=== PATIENT | female | born 1980 | race Caucasian/White ===

== ENCOUNTER 2023-01-20 23:25 | Emergency (ER) | payer SELFPAY ==
[2023-01-20 23:45] VITALS: BP 190/98; PULSE 96; RESP 20; TEMP 36.6; O2SAT 100; BMI 19.0
[2023-01-20 23:58] LABS: Basophils # 0.1 K/mm3 (0-0.2); Basophils % 0.8 % (0.1-2.0); Eosinophils # 0.1 K/mm3 (0.0-0.4); Eosinophils % 0.9 % (0.1-12.0); Hematocrit 41.4 % (37.0-47.0); Hemoglobin 13.7 g/dL (12.2-16.2); Lymphocytes # 4.5 K/mm3 (0.7-4.5); Mean Corpuscular HGB Conc 33.1 g/dL (31.8-35.4); Mean Corpuscular Hemoglobin 29.9 pg (27.0-31.2); Mean Corpuscular Volume 90.2 fl (81-99); Mean Platelet Volume 7.7 fl (7.4-10.4); Monocytes # 0.6 K/mm3 (0.1-1.0); Monocytes % 5.9 % (1.7-9.3); Neutrophils # 5.2 K/mm3 (1.8-7.8); Neutrophils % 49.5 % (37.0-80.0); Platelet Count 308 K/mm3 (142-424); Red Blood Count 4.59 M/mm3 (4.20-5.40); Red Cell Distribution Width 12.7 % (11.5-17.5); White Blood Count 10.5 K/mm3 (4.8-10.8)
[2023-01-21] VITALS: BP 190/115; PULSE 95; O2SAT 99
--- NOTE | 2023-01-21 | CT_ITS ---
PROCEDURE INFORMATION: Exam: CT Abdomen And Pelvis With Contrast Exam date and time: 01/21/2023 12:12 AM Age: 43 years old Clinical indication: Abdominal pain; Prior surgery; Surgery type: Tubal; Additional info: Pelvic pain TECHNIQUE: Imaging protocol: Computed tomography of the abdomen and pelvis with contrast. Radiation optimization: All CT scans at this facility use at least one of these dose optimization techniques: automated exposure control; mA and/or kV adjustment per patient size (includes targeted exams where dose is matched to clinical indication); or iterative reconstruction. Contrast material: ISOVUE; Contrast volume: 75 ml; Contrast route: IV; REPORTING DATA: Count of CT and Cardiac NM exams in prior 12 months: This patient has received 0 known CTs and 0 known cardiac nuclear medicine studies in the 12 months prior to the current study. COMPARISON: No relevant prior studies available. FINDINGS: Liver: Normal. No mass. Gallbladder and bile ducts: Normal. No calcified stones. No ductal dilation. Pancreas: Normal. No ductal dilation. Spleen: Normal. No splenomegaly. Adrenal glands: Normal. No mass. Kidneys and ureters: Normal. No hydronephrosis. Stomach and bowel: Scattered colonic diverticula without pericolonic fat stranding. Appendix: No evidence of appendicitis. Intraperitoneal space: Unremarkable. No free air. No significant fluid collection. Vasculature: Unremarkable. No abdominal aortic aneurysm. Lymph nodes: Shotty mesenteric/retroperitoneal lymph nodes without lymphadenopathy. Urinary bladder: Unremarkable as visualized. Reproductive: Unremarkable as visualized. Bones/joints: Unremarkable. No acute fracture. Soft tissues: Unremarkable. IMPRESSION: Reactive mesenteric/retroperitoneal lymph nodes. Colonic diverticulosis. Otherwise unremarkable study.
--- NOTE | 2023-01-21 | HMH.EDABDPAI ---
Discharge Plan Disposition Patient Disposition: Home, Self-Care Condition: Good Prescriptions Prescriptions: New dicyclomine 20 mg tablet 20 mg PO TID PRN (Reason: abdominal pain) Qty: 20 0RF metronidazole 500 mg tablet 500 mg PO TID Qty: 30 0RF ciprofloxacin HCl [Cipro] 500 mg tablet 500 mg PO BID Qty: 20 0RF No Action escitalopram oxalate 10 mg tablet See Rx Instructions .ROUTE .COMPLEX Qty: 30 0RF Dose Instruction: Take 1 tablet by mouth once daily Rx Instructions: Take 1 tablet by mouth once daily metoprolol succinate 25 mg tablet extended release 24 hr See Rx Instructions .ROUTE .COMPLEX Qty: 30 0RF Dose Instruction: Take 1 tablet by mouth once daily Rx Instructions: Take 1 tablet by mouth once daily Referrals Follow up/Referrals: Johnnie Hunter APRN [Primary Care Provider] - See instructions Diana Bray APRN [Staff Physician] - See instructions Clinical Impressions Clinical Impression: Mesenteric adenitis, Pyuria, Hypertension Stand Alone Forms Stand Alone Forms: Work/School Release Instructions Patient Instructions: DI for Acute Abdominal Pain Discharge ED Provider: Larissa Cadena Abdominal Pain HPI General Chief Complaint: Abdominal Pain Stated Complaint: Stomach pain,diarrhea Time Seen by Provider: 01/20/23 23:45 Mode of Arrival: Ambulatory Source of Information: Patient Limitations: No Limitations History of Present Illness HPI narrative: Patient is a 43 female with complaint suprapubic pain. Patient is complaining severe suprapubic pain and abdominal pain. Patient stated that started last night but she worked through all day at work and then said the pain got worse so she brought her some pain. Burning all night sensation in the suprapubic area. She has no urgency frequency or burning on urination. She is urinating fine. She is drinking fine. Patient has nausea but no vomiting. Pain 6 out of 10 burning cramping type pain to lower abdomen. She did not have any diarrhea all day but now she has had couple episodes of diarrhea no blood in the diarrhea. MD complaint: abdominal pain Onset (ago): hour(s) Consistency: intermittent Location: suprapubic Severity: moderate Severity scale (1-10): 8 Quality: cramping and stabbing Radiation: RLQ Migration to: RLQ Relieving factors: nothing Exacerbating factors: nothing Associated symptoms: nausea and diarrhea Related Data Previous Rx's Medication Instructions Recorded escitalopram oxalate 10 mg tablet See Rx Instructions .Route 09/28/22 .COMPLEX #30 tabs metoprolol succinate 25 mg See Rx Instructions .Route 09/28/22 tablet,extended release 24 hr .COMPLEX #30 tabs ciprofloxacin HCl 500 mg tablet 500 mg PO BID #20 tabs 01/21/23 (Cipro) dicyclomine 20 mg tablet 20 mg PO TID PRN abdominal pain 01/21/23 #20 tabs metronidazole 500 mg tablet 500 mg PO TID #30 tabs 01/21/23 Allergies Allergy/AdvReac Type Severity Reaction Status Date / Time No Known Allergies Allergy Verified 09/10/22 10:56 [facility] Disclaimer: The information contained in this section may have been updated after the patient was seen, as this information can be updated by other users. 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 Smoking Status: Current some day smoker alcohol intake: never current occupational status: employed Travel in the last 8 weeks: None ROS Obtained: Yes All systems reviewed & no additional complaints except as documented Gastrointestinal Gastrointestingal: Reports abdominal pain, cramping, diarrhea and nausea Physical Exam General General appearance: alert and in distress Head Head exam: atraumatic, normocephalic and normal inspection Eye Eye exam: Present normal appearance, PERRL and EOMI; Absent scleral icterus or conjunctival redness ENT ENT exam: Present normal exam, normal oropharynx and mucous membranes moist Neck Neck exam: Pre
[2023-01-21 00:15] LABS: Alanine Aminotransferase 26 U/L (12-78); Albumin Level 4.9 g/dl (3.5-5.0); Albumin/Globulin Ratio 1.4 (1.1-1.8); Alkaline Phosphatase 72 U/L (38-126); Anion Gap 7.6 mEq/L (5-15); Aspartate Amino Transferase 29 U/L (14-36); Bilirubin,Total 0.8 mg/dl (0.2-1.3); Blood Urea Nitrogen 13 mg/dl (7-17); Calcium 9.3 mg/dl (8.4-10.2); Carbon Dioxide 29 mmol/L (22.0-30.0); Chloride 102 mmol/L (98-107); Estimated Glomerular Filt Rate 78 ml/min (>60); GFR (African American) 94 ML/MIN (>60); Globulin 3.6 g/dL (1.3-3.2); Glucose 100 mg/dl (74-100); Lipase 116 U/L (23-300); Potassium 3.6 mmoL/L (3.5-5.1); Sodium 135 mmol/L (136-145); Total Protein,Serum 8.5 g/dl (6.3-8.2)
[2023-01-21 00:21] LABS: Activated Partial Thrombo Time 25.7 seconds (22.8-30.6); Prothrombin Time 10.8 seconds (10.1-12.5)
[2023-01-21 00:30] VITALS: BP 190/108; PULSE 87; O2SAT 100
[2023-01-21 01:00] VITALS: BP 173/100; PULSE 94; O2SAT 100
[2023-01-21 01:12] LABS: Microscopic, Urine URINE MICROSCOPIC (MICROSCOPIC)
[2023-01-21 01:13] LABS: Appearance,Urine CLEAR (Clear); Bilirubin,Urine Negative (Negative); Blood, Urine Negative (Negative); Color,Urine YELLOW (Yellow); Glucose,Urine (UA) Negative (Negative); Ketones,Urine Negative (Negative); Leukocyte Esterase,Urine 1+ (Negative); Nitrate,Urine Negative (Negative); Protein,Urine Negative (Negative); Urobilinogen,Urine 0.2 EU/dl (0.2)
[2023-01-21 01:39] LABS: Bacteria,Urine 2+ /lpf
[2023-01-21 01:58] VITALS: BP 170/98; PULSE 74; RESP 16; TEMP 36.9; O2SAT 99
== END 2023-01-21 01:59 | disposition home or self-care (01) ==
PROVIDERS: Emergency Provider Emergency Medicine; PCP Nurse Practitioner Family
DX: I88.0 Nonspecific mesenteric lymphadenitis (principal); R82.81 Pyuria; R10.31 Right lower quadrant pain; F17.200 Nicotine dependence, unspecified, uncomplicated
CPT/HCPCS: 74177; 80053; 81001; 83690; 85025; 85610; 85730; 87086; 87088; 87186; 96360; 96374; 96375; 99284; 99285; J2405; Q9967

== ENCOUNTER 2024-09-11 23:35 | Emergency (ER) | payer SELFPAY ==
[2024-09-11 23:36] VITALS: BP 191/126; PULSE 114; RESP 20; TEMP 36.9; O2SAT 100; BMI 21.2
--- NOTE | 2024-09-11 23:37 | XR_ITS ---
PROCEDURE INFORMATION: Exam: XR Chest Exam date and time: 09/11/2024 11:33 PM Age: 44 years old Clinical indication: Pain; Chest pressure; Additional info: Cp R side TECHNIQUE: Imaging protocol: Radiologic exam of the chest. Views: 2 views. COMPARISON: CT ABDOMEN PELVIS W CON 01/21/2023 12:12 AM FINDINGS: Lungs: No consolidation. Pleural spaces: No pleural effusion. No pneumothorax. Heart/Mediastinum: No cardiomegaly. Bones/joints: Unremarkable. IMPRESSION: No acute findings.
--- NOTE | 2024-09-11 23:38 | HMH.EDCP ---
Discharge Plan Disposition Patient Disposition: Home, Self-Care Prescriptions Prescriptions: No Action escitalopram oxalate 10 mg tablet See Rx Instructions .ROUTE .COMPLEX Qty: 30 0RF Dose Instruction: Take 1 tablet by mouth once daily Rx Instructions: Take 1 tablet by mouth once daily metoprolol succinate 25 mg tablet extended release 24 hr See Rx Instructions .ROUTE .COMPLEX Qty: 30 0RF Dose Instruction: Take 1 tablet by mouth once daily Rx Instructions: Take 1 tablet by mouth once daily dicyclomine 20 mg tablet 20 mg PO TID PRN (Reason: abdominal pain) Qty: 20 0RF metronidazole 500 mg tablet 500 mg PO TID Qty: 30 0RF ciprofloxacin HCl [Cipro] 500 mg tablet 500 mg PO BID Qty: 20 0RF Referrals Follow up/Referrals: Provider,Referral, [Primary Care Provider] - See instructions Activity Restrictions/Add. Instructions Additional Instructions/Restrictions: You were evaluated in the ER and are appropriate for discharge at this time. Take the prescribed Hydroxyzine if needed for anxiety. This medication makes you feel sleepy, do not drive after taking it. Make an appointment with your primary care doctor to recheck your blood pressure and re-evaluate your symptoms. Return to the ER with any new, worsening, or otherwise concerning symptoms. Clinical Impressions Clinical Impression: Anxiety, Chest pain Stand Alone Forms Stand Alone Forms: Work/School Release Print Language Print Language: Cameroonian Discharge ED Provider: Aminta Ibarra General Chief Complaint: Chest Pain Stated Complaint: Chest Pain Time Seen by Provider: 09/11/24 23:37 History of Present Illness HPI narrative: 44-year-old female with a history of depression, anxiety presents to the ER with right sided chest pain. She reports her chest pain started today around 3 PM. 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 She states she has been under a lot of stress recently and has not been taking her depression and anxiety medications because she does not have active health insurance, and states this extra stress seems to initiate her pain. She reports it feels tight but not like pressure and is nonradiating. She states the pain has been persistent all day, it lessened slightly around 6 PM when she was at her daughter's music program and was relaxed, but then worsened again. She is not having any headache, dizziness, nausea, vomiting, difficulty breathing, numbness, tingling, weakness, dysuria, hematuria, or other associated symptoms. She has not taken any medications for her pain. She states she is not currently on any of her old prescribed medications because of her lack of health insurance. She believes her pain is from anxiety. Related Data Previous Rx's ?Medication ?Instructions ?Recorded escitalopram oxalate 10 mg tablet See Rx Instructions .Route 09/28/22 .COMPLEX #30 tabs metoprolol succinate 25 mg See Rx Instructions .Route 09/28/22 tablet,extended release 24 hr .COMPLEX #30 tabs ciprofloxacin HCl 500 mg tablet 500 mg PO BID #20 tabs 01/21/23 (Cipro) dicyclomine 20 mg tablet 20 mg PO TID PRN abdominal pain 01/21/23 #20 tabs metronidazole 500 mg tablet 500 mg PO TID #30 tabs 01/21/23 Allergies Allergy/AdvReac Type Severity Reaction Status Date / Time No Known Allergies Allergy Verified 09/10/22 10:56 [facility] Disclaimer: The information contained in this section may have been updated after the patient was seen, as this information can be updated by other users. 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 Smoking Status: Current every day smoker alcohol intake: never current occupational status: employed Travel in the last 8 weeks: None ROS Obtained: Yes Systems reviewed as appropriate & no additional complaints except as documented ROS per HPI Physical Exam General General appearance: alert and in no apparent distress Head Head exam: atraumatic and normocephalic Eye Eye exam: Present PERRL and EOMI (Strabismus right eye) ENT ENT exam: Present mucous membranes moist Neck Neck exam: Present normal inspection and full ROM Chest Chest inspection: Present symmetric chest wall rise; Absent tenderness Respiratory Respiratory exam: Present normal lung sounds bilaterally; Absent respiratory distress, wheezes or stridor Cardiovascular Cardiovascular exam: Present regular rate and normal rhythm Abdominal Exam Abdominal exam: Present soft; Absent distention or tenderness Extremities Exam Extremities exam: Present full ROM Neurological Exam Neurological exam: Present alert and oriented X3; Absent motor sensory deficit Psychiatric Psychiatric exam: Present normal affect and normal mood Skin Skin exam: Present warm and dry HEART Score HEART Score HEART Score assessment performed?: Yes History (anamnesis): Slightly suspicious ECG: Non-specific disturbance Age: 45-65 years Risk factors: 1-2 risk factors Troponin: </= normal limit HEART Score: 3 Critical Care Critical Care Time Critical Care Time: No Medical Decision Making Medical Records Medical records reviewed: Yes I reviewed the patient's medical records. MR Comment: Patient was seen in our ER in 2022 and prescribed dicyclomine, metronidazole, ciprofloxacin after being diagnosed with mesenteric adenitis, pyuria, hypertension when she presented with suprapubic pain. Otherwise limited records within our system. Rios Inquiry Pt receiving controlled substance: No Vital Signs Vital Signs: 09/11/24 23:36 09/11/24 23:48 09/11/24 23:58 Temperature 98.4 F Temperature Source Oral Pulse Rate 114 H 85 Pulse Rate [Right] 114 H Respiratory Rate 20 Blood Pressure 182/111 H Blood Pressure [Right Arm] 191/126 H Blood Pressure Mean 143 Blood Pressure Mean [Right Arm] 147 02 Sat by Pulse Oximetry 100 99 Oxygen Delivery Method Room Air 09/12/24 00:00 09/12/24 00:35 09/12/24 01:05 Temperature Temperature Source Pulse Rate 87 83 86 Pulse Rate [Right] Respiratory Rate 13 18 Blood Pressure 190/117 H 168/105 H 170/103 H Blood Pressure [Right Arm] Blood Pressure Mean 140 Blood Pressure Mean [Right Arm] 02 Sat by Pulse Oximetry 99 98 99 Oxygen Delivery Method 09/12/24 01:35 09/12/24 01:44 Temperature 98.4 F Temperature Source Pulse Rate 78 74 Pulse Rate [Right] Respiratory Rate 15 17 Blood Pressure 172/104 H 172/104 H Blood Pressure [Right Arm] Blood Pressure Mean Blood Pressure Mean [Right Arm] 02 Sat by Pulse Oximetry 99 Oxygen Delivery Method Room Air Lab Data Labs: Lab Results 09/11/24 23:35: WBC 12.2 H, RBC 4.67, Hgb 14.3, Hct 42.2, MCV 90.4, MCH 30.7, MCHC 34.0, RDW 13.2, Plt Count 286, MPV 7.5, Neut % (Auto) 59.2, Lymph % (Auto) 31.8, [place] % (Auto) 6.3, Eos % (Auto) 1.3, Baso % (Auto) 1.4, Neut # (Auto) 7.2, Lymph # (Auto) 3.9, [place] # (Auto) 0.8, Eos # (Auto) 0.2, Baso # (Auto) 0.2, PT 10.5, INR 0.93, D-Dimer 0.67 H, Sodium 140, Potassium 4.2, Chloride 102, Carbon Dioxide 31 H, Anion Gap 11.2, BUN 10, Creatinine 0.70, Estimated Creat Clear 92, Estimated GFR 90, Est GFR ( Amer) 109, Glucose 95, Calcium 10.0, Total Bilirubin 0.7, AST 33, ALT 30, Alkaline Phosphatase 64, Troponin I < 0.01, NT-Pro-B Natriuret Pep 50.2, Total Protein 8.7 H, Albumin 5.1 H, Globulin 3.6 H, Albumin/Globulin Ratio 1.4, Serum HCG, Qual Negative 09/11/24 23:35 09/11/24 23:35 Response Orders (Tests/Meds): ED MEDICATIONS Discontinued Medications Generic Name Dose Route Start Last Admin Trade Name Freq PRN Reason Stop Dose Admin Aspirin 324 mg 09/11/24 23:37 09/11/24 23:44 Aspirin 81mg Chewable Tablet PO 09/11/24 23:38 324 mg ONCE ONE Administration Hydroxyzine Pamoate 50 mg 09/11/24 23:37 09/11/24 23:45 Hydroxyzine Pamoate 25mg Capsule PO 09/11/24 23:38 50 mg ONCE ONE Administration ORDERS Category Date Time Status XR chest 2V Stat Exams 09/11/24 23:37 Completed Complete Blood Count Auto Diff Stat Lab 09/11/24 23:35 Completed Comprehensive Metabolic Panel Stat Lab 09/11/24 23:35 Completed D-Dimer Stat Lab 09/11/24 23:35 Completed HCG Qualitative, Serum Stat Lab 09/11/24 23:35 Completed HIV (1&2) Antibody Rapid Stat Lab 09/11/24 23:35 Received Hep C Ab with Reflex to RNA Stat Lab 09/11/24 23:35 Received NT Pro Brain Natriuretic Pep. Stat Lab 09/11/24 23:35 Completed Prothrombin Time INR Stat Lab 09/11/24 23:35 Completed Troponin I Q3H Lab 09/12/24 05:45 Ordered Troponin I Stat Lab 09/11/24 23:35 Completed MDM Narrative Medical Decision Narrative: In summary, this 44-year-old female with comorbidities as described in HPI presents to the emergency department today with right-sided chest pain without radiation that she believes is attributed to anxiety. On initial evaluation patient is hemodynamically stable, afebrile, she is hypertensive but also reports an extreme anxiety of needles as well as having anxiety due to her ongoing situation. Cardiopulmonary exam is benign, patient has no tenderness of the chest wall. She was tachycardic on arrival but on my exam her tachycardia had improved and her heart rate was in the 90s. She has a benign abdominal exam, GCS 15, no neurodeficits. Differential diagnosis includes but is not limited to ACS, PE, esophageal spasm, pneumothorax, electrolyte abnormality, dehydration, anxiety, panic attack. Based on these concerns, I ordered serum labs, chest x-ray, cardiac workup, treatment for anxiety. ECG personally interpreted demonstrates sinus tachycardia, rate 105, [place] is short at 117 but there is no delta wave, no finding of WPW, no Brugada, no HCM. Normal axis, normal QTc, no STEMI. Patient received aspirin, hydroxyzine initially for treatment of chest pain and anxiety Labs personally reviewed demonstrate D-dimer 0.67, per years criteria PE is ruled out and CTA PE is not indicated. Initial troponin undetectably low less than 0.01, significantly reassuring against cardiac pathology given patient's duration of symptoms and reassuring EKG. CMP nonactionable, CBC nonactionable though patient does have very mild leukocytosis which is nonspecific, hemoglobin and platelets are normal with normal PT/INR, test negative. I do not believe serial troponins are indicated given the duration of patient's symptoms. Chest x-ray personally interpreted does not demonstrate acute intrathoracic abnormality, see radiology read for final interpreted age. On reassessment, patient is asymptomatic and no longer has chest pain, her blood pressure is also improved without any intervention aside from the hydroxyzine which was administered earlier. She is appropriate for discharge at this time. She explained that her health insurance starts this week and she is going to get back on her previously prescribed medications. Did give her a prescription for hydroxyzine for management of anxiety temporarily. Explained that this medication can make her sleepy and that she should not drive or operate machinery after taking it. I gave her explicit instructions to follow-up with her primary care doctor immediately for reevaluation of hypertension as well as her other ongoing problems. Patient was given written and verbal instructions on symptomatic monitoring and management, follow-up instructions, and return precautions for the emergency department. She indicated understanding and the patient was discharged in stable condition
--- NOTE | 2024-09-11 23:40 | ECG_ITS ---
APPROVED REPORT Exam: Resting ECG HR:105 bpm ECG Measurements Heart Rate 105 AXES WA 117 P 59 QRSd 73 QRS 58 QT 310 T 70 QTc 371 Conclusion SINUS TACHYCARDIA WITH SHORT WA INTERVAL ABNORMAL RHYTHM ECG No STEMI Electronically signed by : FRED SILVER, 09/12/2024 07:03:58
[2024-09-11] MEDS: ASPIRIN 81MG CHEWABLE TABLET 324 MG PO (23:44)
[2024-09-11] MEDS: hydrOXYzine pamoate 25MG CAPSULE 50 MG PO (23:45)
[2024-09-11 23:48] VITALS: PULSE 114
[2024-09-11 23:58] VITALS: BP 182/111; PULSE 85; O2SAT 99
[2024-09-11 23:59] LABS: Basophils # 0.2 K/mm3 (0-0.2); Basophils % 1.4 % (0.1-2.0); Eosinophils # 0.2 K/mm3 (0.0-0.4); Eosinophils % 1.3 % (0.1-12.0); Hematocrit 42.2 % (37.0-47.0); Hemoglobin 14.3 g/dL (12.2-16.2); Lymphocytes # 3.9 K/mm3 (0.7-4.5); Lymphocytes % 31.8 % (10-50); Mean Corpuscular Hemoglobin 30.7 pg (27.0-31.2); Mean Corpuscular Volume 90.4 fl (81-99); Mean Platelet Volume 7.5 fl (7.4-10.4); Monocytes # 0.8 K/mm3 (0.1-1.0); Monocytes % 6.3 % (1.7-9.3); Neutrophils # 7.2 K/mm3 (1.8-7.8); Neutrophils % 59.2 % (37.0-80.0); Platelet Count 286 K/mm3 (142-424); Red Blood Count 4.67 M/mm3 (4.20-5.40); Red Cell Distribution Width 13.2 % (11.5-17.5); White Blood Count 12.2 K/mm3 (4.8-10.8)
[2024-09-12] VITALS: BP 190/117; PULSE 87; O2SAT 99
[2024-09-12] LABS: HCG Qualitative, Serum Negative (Negative)
[2024-09-12 00:01] LABS: Alanine Aminotransferase 30 U/L (12-78); Albumin Level 5.1 g/dl (3.5-5.0); Albumin/Globulin Ratio 1.4 (1.1-1.8); Alkaline Phosphatase 64 U/L (38-126); Anion Gap 11.2 mEq/L (5-15); Aspartate Amino Transferase 33 U/L (14-36); Bilirubin,Total 0.7 mg/dl (0.2-1.3); Blood Urea Nitrogen 10 mg/dl (7-17); Carbon Dioxide 31 mmol/L (22.0-30.0); Chloride 102 mmol/L (98-107); Creatinine Clearance Estimated 92 mL/min (50-200); Estimated Glomerular Filt Rate 90 ml/min (>60); GFR (African American) 109 ML/MIN (>60); Globulin 3.6 g/dL (1.3-3.2); Glucose 95 mg/dl (74-100); INR 0.93 (0.9-1.1); Potassium 4.2 mmoL/L (3.5-5.1); Prothrombin Time 10.5 seconds (10.1-12.5); Sodium 140 mmol/L (136-145); Total Protein,Serum 8.7 g/dl (6.3-8.2)
[2024-09-12 00:13] LABS: NT Pro Brain Natriuretic Pep. 50.2 pg/mL (0-125)
[2024-09-12 00:16] LABS: D-Dimer 0.67 ug/mL (0.0-0.5)
[2024-09-12 00:35] VITALS: BP 168/105; PULSE 83; RESP 13; O2SAT 98
[2024-09-12 01:05] VITALS: BP 170/103; PULSE 86; RESP 18; O2SAT 99
[2024-09-12 01:35] VITALS: BP 172/104; PULSE 78; RESP 15; O2SAT 99
[2024-09-12 01:44] VITALS: BP 172/104; PULSE 74; RESP 17; TEMP 36.9; O2SAT 96
[2024-09-12 03:14] LABS: Troponin I < 0.01 ng/ml (0.00-0.034)
[2024-09-12 12:15] LABS: HIV (1&2) Antibody Rapid NONREACTIVE (NONREACTIVE)
[2024-09-13 06:15] LABS: HCV Ab Non Reactive (Non Reactive)
== END 2024-09-12 01:44 | disposition home or self-care (01) ==
PROVIDERS: Emergency Provider Emergency Medicine
DX: R07.9 Chest pain, unspecified (principal); F41.9 Anxiety disorder, unspecified
CPT/HCPCS: 71046; 80053; 83880; 84484; 84703; 85025; 85378; 85610; 86803; 87389; 93005; 99284

== ENCOUNTER 2024-09-14 09:54 | Outpatient (CLI) | payer BC, SELFPAY ==
[2024-09-14 18:23] LABS: Chol/HDL Ratio 3.7 (1-3.5); Cholesterol 246 mg/dl (140-200); HDL Cholesterol 66 mg/dl (40-60); Triglycerides 88 mg/dl (30-150); VLDL Cholesterol 18 mg/dL (0-40)
[2024-09-14 18:39] LABS: Triiodothryronine (T3) Uptake 30 % (23.5-40.5)
[2024-09-14 18:40] LABS: T4 (Thyroxine) 10.1 ug/dl (5.53-11.0)
[2024-09-14 18:54] LABS: Thyroid Stimulating Hormone 0.39 uIU/mL (0.465-4.68)
== END 2024-09-14 23:59 | disposition home or self-care (01) ==
LOC: LAB.DROPOF 09-16 08:54
PROVIDERS: PCP Family Medicine; Visit Provider Family Medicine
DX: F41.9 Anxiety disorder, unspecified (principal); F31.9 Bipolar disorder, unspecified; Z00.00 Encounter for general adult medical examination without abnormal findings
CPT/HCPCS: 80061; 84436; 84443; 84479

== ENCOUNTER 2025-02-06 11:33 | Emergency (ER) | payer OTHER, SELFPAY ==
[2025-02-06 11:39] VITALS: BP 207/132; PULSE 102; O2SAT 99
[2025-02-06 11:46] VITALS: BP 183/108; PULSE 92; O2SAT 99
[2025-02-06 11:48] VITALS: BP 183/108; PULSE 98; RESP 16; TEMP 36.7; O2SAT 99; BMI 20.1
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
[2025-02-06 12:00] VITALS: BP 180/102; PULSE 80; O2SAT 100
[2025-02-06 13:59] VITALS: BP 155/85; PULSE 68; RESP 16; TEMP 36.9; O2SAT 96
== END 2025-02-06 14:00 | disposition home or self-care (01) ==
PROVIDERS: Emergency Provider Emergency Medicine; PCP Family Medicine
DX: S46.911A Strain of unspecified muscle, fascia and tendon at shoulder and upper arm level, right arm, initial encounter (principal); M25.511 Pain in right shoulder; V49.50XA Passenger injured in collision with unspecified motor vehicles in traffic accident, initial encounter
CPT/HCPCS: 71046; 73030; 99284

== ENCOUNTER 2025-08-29 13:29 | Emergency (ER) | payer SELFPAY ==
[2025-08-29] VITALS (7 sets, daily range): BP systolic 165–189; BP diastolic 103–113; PULSE 80–100; RESP 15–20; TEMP 36.7–36.9; O2SAT 98–100; BMI 21.4
--- NOTE | 2025-08-29 13:29 | ECG_ITS ---
APPROVED REPORT Exam: Resting ECG HR:95 bpm ECG Measurements Heart Rate 95 AXES OR 126 P 39 QRSd 66 QRS 1 QT 316 T 52 QTc 369 Conclusion SINUS RHYTHM NORMAL ECG UNCONFIRMED REPORT Normal sinus rhythm. No ST elevation or depression. QTc of 369 Electronically signed by : SYED IVEY, 08/29/2025 14:21:33
--- NOTE | 2025-08-29 13:34 | XR_ITS ---
FINAL REPORT CLINICAL HISTORY: Shortness of breath COMPARISON: 02/06/2025 FINDINGS: CHEST 1 VIEW The heart size is normal. The mediastinum is normal. There is no focal infiltrate or edema. There are no pleural effusions. There is no pneumothorax. There is no osseous abnormality. IMPRESSION: No acute cardiopulmonary process Reviewed, Interpreted and Dictated by Hiren Garay MD Transcribed by Lauryn Benjamin Authenticated and [facility]
[2025-08-29] MEDS: FAMOTIDINE 20MG/2ML VIAL 20 MG IV (13:45)
[2025-08-29] MEDS: ASPIRIN 325MG TABLET 325 MG PO (13:45)
[2025-08-29] MEDS: SODIUM CHLORIDE 0.9% 10ML VIAL 8 ML IV (13:45)
--- NOTE | 2025-08-29 13:47 | ED_ITS ---
<Statement entered by Brett Morrison MD - 08/30/25 11:57> I was consulted by the BRET, and we discussed the complexity of the problems being addressed. I approve the treatment and management plan for this patient's care in the emergency department, thus performing a substantive portion of the medical decision making. Brett Morrison MD Discharge Plan Disposition Chief Complaint: Chest Pain Prescriptions Prescriptions: No Action benzonatate 100 mg capsule 100 mg PO BID PRN (Reason: cough) Qty: 20 0RF desvenlafaxine succinate [Pristiq] 50 mg tablet extended release 24 hr 50 mg PO DAILY Qty: 30 2RF metoprolol succinate 25 mg tablet extended release 24 hr See Rx Instructions .ROUTE .COMPLEX Qty: 30 3RF Dose Instruction: Take 1 tablet by mouth once daily Rx Instructions: Take 1 tablet by mouth once daily hydroxyzine HCl 25 mg tablet 25 mg PO TID PRN (Reason: anxiety) Qty: 60 0RF amoxicillin 500 mg tablet 500 mg PO BID 10 Days Qty: 20 0RF ciprofloxacin-dexamethasone 0.3-0.1 % drops,suspension 4 drp otic (ear) BID 5 Days Qty: 7.5 0RF atorvastatin [Lipitor] 10 mg tablet 10 mg PO DAILY Qty: 30 2RF Referrals Follow up/Referrals: Darian Gibson MD [Primary Care Provider, Family Practice] - See instructions Print Language Print Language: Kosovan Discharge ED Provider: Brett Morrison HPI General Chief Complaint: Chest Pain Stated Complaint: chest pain Time Seen by Provider: 08/29/25 13:33 Mode of Arrival: Ambulatory Source of Information: Patient Description of Symptoms (Recalled from ER Triage Doc. by RN): pt reports increased anxiety. states she has had additional recent stressors in her life that have made her anxiety worse. states she started having chest pressure last night and thought she should get looked at today. History of Present Illness HPI narrative: 45-year-old female presents to the ED today for complaints of anxiety. 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 She has yet to call and work today. She says she did start with chest pain last night. She has a dull ache in burning in her chest. She has no shortness of breath no nausea no vomiting or diarrhea. She says she has a lot of anxiety about her life recently. She does tell me that she is supposed to take medication for hypertension but she does not take it. She does arrive to the ED with elevated blood pressure initially systolic was 214 now it is 189. Related Data Previous Rx's ?Medication ?Instructions ?Recorded desvenlafaxine succinate 50 mg 50 mg PO DAILY #30 tabs 09/14/24 tablet,extended release 24 hr (Pristiq) hydroxyzine HCl 25 mg tablet 25 mg PO TID PRN anxiety #60 tabs 09/14/24 metoprolol succinate 25 mg See Rx Instructions .Route 09/14/24 tablet,extended release 24 hr .COMPLEX #30 tabs atorvastatin 10 mg tablet (Lipitor) 10 mg PO DAILY #30 tabs 09/17/24 benzonatate 100 mg capsule 100 mg PO BID PRN cough #20 caps 09/17/24 amoxicillin 500 mg tablet 500 mg PO BID 10 days #20 ta bs 09/20/24 ciprofloxacin 0.3 %-dexamethasone 4 drp otic (ear) BID 5 days #7.5 mL 09/20/24 0.1 % ear drops,suspension Allergies Allergy/AdvReac Type Severity Reaction Status Date / Time No Known Allergies Allergy Verified 09/20/24 14:43 [facility] Disclaimer: The information contained in this section may have been updated after the patient was seen, as this information can be updated by other users. 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: Never smoker alcohol intake: never current occupational status: employed Travel in the last 8 weeks?: None Have you lived/traveled outside US in past 30 days?: No Contact w/someone who lives/traveled outside US past 30 days?: No Exposure to someone with infectious disease in past 14 days?: No Do you have a fever (greater than 100.4 F or 38 C)?: No Have you tested positive for COVID-19?: No Exposed to someone with COVID-19 in past 14 days?: No Do you have a sore throat?: No Do you have a cough?: No Do you have any weakness?: No Do you have any diarrhea?: No Are you experiencing any unusual bleeding?: No Do you have any muscle aches/pain?: No Do you have any abdominal pain?: No Are you experiencing loss of taste or smell?: No ROS Obtained: Yes Systems reviewed as appropriate & no additional complaints except as documented Constitutional Constitutional: Reports as per HPI Physical Exam General General appearance: alert and anxious Head Head exam: normocephalic Eye Eye exam: Present PERRL ENT ENT exam: Present mucous membranes moist Neck Neck exam: Present trachea midline Chest Chest inspection: Present symmetric chest wall rise Respiratory Respiratory exam: Present normal lung sounds bilaterally Cardiovascular Cardiovascular exam: Present regular rate, normal rhythm, normal heart sounds, +S1 and +S2 Abdominal Exam Abdominal exam: Present soft and normal bowel sounds Extremities Exam Extremities exam: Present full ROM and normal capillary refill Back Exam Back exam: Present full ROM Neurological Exam Neurological exam: Present alert and oriented X3 Psychiatric Psychiatric exam: Present anxious Skin Skin exam: Present warm and dry HEART Score HEART Score HEART Score assessment performed?: Yes History (anamnesis): Slightly suspicious ECG: Normal Age: 45-65 years Risk factors: 1-2 risk factors Troponin: </= normal limit HEART Score: 2 Critical Care Critical Care Time Critical Care Time: No Medical Decision Making Rios Inquiry Pt receiving controlled substance: No Rios was queried for this patient: No Vital Signs Vital Signs: 08/29/25 13:36 08/29/25 14:00 08/29/25 14:08 Temperature 98.4 F Temperature Source Oral Pulse Rate 87 88 Pulse Rate [Right] 100 H Respiratory Rate 18 15 Blood Pressure 181/103 H Blood Pressure [Right Arm] 189/113 H Blood Pressure Mean [Right Arm] 138 02 Sat by Pulse Oximetry 99 99 Oxygen Delivery Method 08/29/25 14:30 Temperature Temperature Source Pulse Rate 80 Pulse Rate [Right] Respiratory Rate 17 Blood Pressure 165/106 H Blood Pressure [Right Arm] Blood Pressure Mean [Right Arm] 02 Sat by Pulse Oximetry 99 Oxygen Delivery Method Room Air Lab Data Labs: Lab Results 08/29/25 13:30: WBC 11.2 H, RBC 4.65, Hgb 14.3, Hct 42.0, MCV 90.3, MCH 30.8, MCHC 34.0, RDW 11.9, Plt Count 322, MPV 9.3, Neut % (Auto) 66.9, Lymph % (Auto) 25.8, Story % (Auto) 5.9, Eos % (Auto) 0.6, Baso % (Auto) 0.5, Neut # (Auto) 7.5, Lymph # (Auto) 2.9, Story # (Auto) 0.7, Eos # (Auto) 0.1, Baso # (Auto) 0.1, D- Dimer 0.83 H, Sodium 137, Potassium 3.9, Chloride 101, Carbon Dioxide 26, Anion Gap 13.9, BUN 6 L, Creatinine 0.80, Estimated Creat Clear 78, Estimated GFR 77, Est GFR ( Amer) 93, Glucose 105 H, Calcium 10.1, Magnesium 2.2, Total Bilirubin 1.0, AST 31, ALT 31, Alkaline Phosphatase 96, Troponin I < 0.01, Total Protein 9.6 H, Albumin 5.3 H, Globulin 4.3 H, Albumin/Globulin Ratio 1.2, Lipase 68 08/29/25 14:52: Urine Color Yellow, Urine Appearance Cloudy, Urine pH 6.0, Ur Specific [place] 1.010, Urine Protein Negative, Urine Glucose (UA) Negative, Urine Ketones Negative, Urine Blood Trace-i, Urine Nitrate Negative, Urine Bilirubin Negative, Urine Urobilinogen 1.0, Ur Leukocyte Esterase 3+ A, Urine RBC Occasional, Urine WBC 20-50, Ur Squamous Epith Cells 5-10, Urine Bacteria 4+ 08/29/25 13:30 08/29/25 13:30 Response Orders (Tests/Meds): ED MEDICATIONS Generic Name Dose Route Start Last Admin Trade Name Freq PRN Reason Stop Dose Admin Sodium Chloride 8 ml 08/29/25 13:34 08/29/25 13:45 Sodium Chloride 0.9% 10ml Vial IV 09/28/25 13:33 8 ml NEEDED PRN Administration dilute pepcid Discontinued Medications Generic Name Dose Route Start Last Admin Trade Name Freq PRN Reason Stop Dose Admin Aspirin 325 mg 08/29/25 13:34 08/29/25 13:45 Aspirin 325mg Tablet PO 08/29/25 13:35 325 mg ONCE ONE Administration Famotidine 20 mg 08/29/25 13:34 08/29/25 13:45 Famotidine 20mg/2ml Vial IV 08/29/25 13:35 20 mg ONCE ONE Administration ORDERS Category Date Time Status Chest XR -- portable [XR chest portable] Stat Exams 08/29/25 13:34 Completed CBC [Complete Blood Count Auto Diff] Stat Lab 08/29/25 13:30 Completed Comprehensive Metabolic Panel Stat Lab 08/29/25 13:30 Completed D-Dimer Stat Lab 08/29/25 13:30 Completed Lipase Stat Lab 08/29/25 13:30 Completed Magnesium Stat Lab 08/29/25 13:30 Completed Trop I [Troponin I] Stat Lab 08/29/25 13:30 Completed Troponin I Q3H Lab 08/29/25 16:45 Ordered Troponin I Q3H Lab 08/29/25 19:45 Ordered Urinalysis and Microscopic Stat Lab 08/29/25 14:52 Completed Urine Culture Stat Micro 08/29/25 14:52 Received MDM Narrative Medical Decision Narrative: patient is a 45-year-old female presenting to the emergency department for evaluation of chest pain and anxiety. Patient is hemodynamically stable and nontoxic-appearing upon arrival, afebrile. Differential diagnosis includes ACS, CAD, anxiety among others. Workup will be conducted with hematologic labs, specific imaging, provocative tests. Initial inventions include crystalloid bolus, analgesics, antibiotics. Initial workup reviewed by ri hematologic labs are remarkable for white blood cell count 11.2, H&H was normal, D-dimer was 0.83 which per years criteria her likelihood of VTE is very unlikely. First troponin was 0.01 and since patient's pain started last night we do not have to do a second troponin. Patient's pain is completely gone at this time. She does however have a 3+ leukocytes in her urine with 4+ bacteria. We will place patient on antibiotics, increase fluids and rest. Patient will see her PCP and follow-up if any worsening signs or symptoms occur. Patient has been given return precautions..
[2025-08-29 13:52] LABS: Hematocrit 42.0 % (37.0-47.0); Hemoglobin 14.3 g/dL (12.2-16.2); Immature Granulocytes % 0.3 %; Mean Corpuscular HGB Conc 34.0 g/dL (31.8-35.4); Mean Corpuscular Hemoglobin 30.8 pg (27.0-31.2); Mean Corpuscular Volume 90.3 fl (81-99); Nucleated Red Blood Cells % 0 %; Platelet Count 322 K/mm3 (142-424); Red Blood Count 4.65 M/mm3 (4.20-5.40); Red Cell Distribution Width-SD 39.1 fL; White Blood Count 11.2 K/mm3 (4.8-10.8)
[2025-08-29 13:57] LABS: Alanine Aminotransferase 31 U/L (12-78); Albumin Level 5.3 g/dl (3.5-5.0); Albumin/Globulin Ratio 1.2 (1.1-1.8); Alkaline Phosphatase 96 U/L (38-126); Anion Gap 13.9 mEq/L (5-15); Aspartate Amino Transferase 31 U/L (14-36); Bilirubin,Total 1.0 mg/dl (0.2-1.3); Blood Urea Nitrogen 6 mg/dl (7-17); Calcium 10.1 mg/dl (8.4-10.2); Carbon Dioxide 26 mmol/L (22.0-30.0); Chloride 101 mmol/L (98-107); Creatinine Clearance Estimated 78 mL/min (50-200); Creatinine,Serum 0.80 mg/dl (0.52-1.04); Estimated Glomerular Filt Rate 77 ml/min (>60); GFR (African American) 93 ML/MIN (>60); Globulin 4.3 g/dL (1.3-3.2); Glucose 105 mg/dl (74-100); Lipase 68 U/L (23-300); Magnesium 2.2 mg/dl (1.6-2.3); Potassium 3.9 mmoL/L (3.5-5.1); Sodium 137 mmol/L (136-145); Total Protein,Serum 9.6 g/dl (6.3-8.2)
[2025-08-29 14:00] LABS: D-Dimer 0.83 ug/mL (0.0-0.5)
[2025-08-29 14:10] LABS: Troponin I < 0.01 ng/ml (0.00-0.034)
[2025-08-29 14:59] LABS: Microscopic, Urine URINE MICROSCOPIC (MICROSCOPIC)
[2025-08-29 15:02] LABS: Bilirubin,Urine Negative (Negative); Color,Urine YELLOW (Yellow); Glucose,Urine (UA) Negative (Negative); Ketones,Urine Negative (Negative); Leukocyte Esterase,Urine 3+ (Negative); PH,Urine 6.0 (5.0-8.5); Protein,Urine Negative (Negative); Specific Gravity, Urine 1.010 (1.005-1.030); Urobilinogen,Urine 1.0 EU/dl (0.2)
[2025-08-29 15:23] LABS: Bacteria,Urine 4+ /lpf; RBC,Urine Occasional #/hpf (0-3); WBC,Urine 20-50 #/hpf (0-3)
--- OUTSIDE RECORDS SUMMARY | 2025-08-29 16:20 | XMS_ITS | Clinical Summary ---
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 Role Phone Unavailable Primary Care Provider Unavailabl e Family History Medical History Relation Name Comments Uterine cancer Mother Uterine cancer Sister Relation Name Status Comments Mother Sister 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 Tobacco Use Types Packs/Day Years Used Date Smoking Tobacco: Light Smoker Comments:Light cigarette smo ker (1-9 cigarettes per day) Comments Unknown Sex and Gender Information Value Date Recorded Sex Assigned at Not on file Legal Sex Female 8:46 PM EDT Gender Identity Not on file Sexual Orientation Not on file Last Filed Vital Signs Vital Sign Reading Time Taken Comments Blood Pressure 142/95 06/26/2018 1:15 PM EDT Pulse 81 06/26/2018 1:15 PM EDT Temperature - - Respiratory Rate - - Oxygen Saturation - - Inhaled Oxygen Concentration - - Weight 54.2 kg (119 lb 7.8 oz) 06/26/2018 1:15 P M EDT Height 161.3 cm (5' 3.5 ) 06/26/2018 1:15 PM EDT Body Mass Index 20.83 06/26/2018 1:15 PM EDT Plan of Treatment Not on file
--- OUTSIDE RECORDS SUMMARY | 2025-08-29 16:20 | XMS_ITS | Clinical Summary ---
Author Organization [facility] Address [address] [place] [id number] Phone [email or web address] [email or web address] Care Assembler [employer] Name Role Phone Unavailable Primary Care Provider Unavailabl e Allergies No known active allergies Medications No known medications Active Problems No known active problems 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 Tobacco Use Types Packs/Day Years Used Date Smoking Tobacco: Every Day Cigarettes Smokeless Tobacco: Never Intimate Partner Violence Answer Date R ecorded Insults You Not on file 08/13/2021 Threatens You Not on file 08/13/2021 Screams at You Not on file 08/13/2021 Physically Hurt Not on file 08/13/2021 Intimate Partner Violence Score Not on file 08/13/2021 Stress Answer Date Recorded Stress in your Life Not on file 08/15/2024 Dealing with Stress 3 08/15/2024 Comments Unknown Sex and Gender Information Value Date Recorded Sex Assigned at Not on file Legal Sex Female 9:21 AM CDT Gender Identity Not on file Sexual Orientation Not on file Plan of Treatment Health Maintenance Due Date Last Done Comments CT Colonography 1978 Cervical Cancer Screening Combo 1978 Colonoscopy 1978 Colorectal Cancer Screening Combo 1978 DNA Cologuard 1978 Dental Cleaning/Exam 1978 FIT or FOBT Test 1978 HIV Screening 1978 HPV only / HPV + Pap 1978 Hepatitis C Screening 1978 Pap only testing 1978 Sigmoidoscopy 1978 Annual Preventive Exam 01/22/1996 Hep B Infection Screening - Triple Screen 01/22/1996 Hepatitis B Immunization (1 of 3 - 19+ 3-dose series) 1997 Pneumococcal Immunization (1 of 2 - PCV) 1997 Tetanus Diphtheria and Pertu ssis Immunization (1 - Tdap) 1997 Breast Cancer Screening 01/22/2008 Covid-19 Immunization (1 - 2 025-26 season) 2025 Influenza Immunization (#1) 2025 HIB Immunization Aged Out No longer e ligible based on patient's age to complete this topic HPV Immunization Aged Out No longer e ligible based on patient's age to complete this topic Hepatitis A Immunization Aged Out No longer eligible based on patient's age to complete this topic Polio Immunization Aged Out No longer eligible based on patient's age to complete this topic Insurance OPT OUT NO COPAY NB OPT OUT NO COPAY NB
--- NOTE | 2025-08-30 09:08 | PC.NURSE ---
PRELIM URINE CULTURE RESULTS DISCUSSED WITH . NO CHANGE NEEDED TO TREATMENT PLAN.
--- NOTE | 2025-09-01 10:22 | PC.NURSE ---
FINAL URINE CULTURE DISCUSSED WITH . HE EPRESCRIBED MACROBID. I CALLED AND SPOKE WITH THE PT RELAYING HER RESULTS. I TOLD HER TO STOP THE AUGMENTIN AND START THE MACROBID. THE PT VERBALIZED HER UNDERSTANDING AND DENIED HAVING ANY QUESTIONS.
== END 2025-08-29 15:57 | disposition home or self-care (01) ==
PROVIDERS: Nurse Practitioner; Emergency Provider Student in an Organized Health Care Education/Training Program; PCP Family Medicine
DX: N39.0 Urinary tract infection, site not specified (principal); R07.9 Chest pain, unspecified; I10 Essential (primary) hypertension; F41.1 Generalized anxiety disorder; B96.20 Unspecified Escherichia coli [E. coli] as the cause of diseases classified elsewhere
CPT/HCPCS: 71045; 80053; 81001; 83690; 83735; 84484; 85025; 85378; 87086; 87088; 87186; 93005; 96374; 99285; J1308